=== PATIENT | female | born 1945 | race Caucasian/White ===

== ENCOUNTER 2019-10-21 14:56 | Outpatient (CLI) | payer MEDICARE, SELFPAY ==
--- NOTE | ~2019-10-21 | MM_ITS ---
EXAMINATION: MM screening [facility] BI w yury HISTORY: Screening mammogram TECHNIQUE: Craniocaudal and mediolateral oblique 3-D tomosynthesis images were obtained and synthetic 2-D images were generated. CAD analysis was submitted and interpreted. COMPARISON: No prior mammogram is available for comparison at this institution. BREAST PARENCHYMAL COMPOSITION: The breasts are almost entirely fatty. FINDINGS: Scattered benign-appearing calcifications are present. There is no evidence of suspicious m ass, calcification, or architectural distortion to suggest malignancy in either breast. IMPRESSION: 1. No mammographic evidence of malignancy. 2. Recommend routine screening mammography in one year. BI-RADS Category 2: Benign finding(s). Reviewed, dictated and finalized at location A. ING TECHNICIAN
== END 2019-10-21 14:57 | disposition home or self-care (01) ==
LOC: ANHIMG 14:58
PROVIDERS: PCP Internal Medicine; Visit Provider Internal Medicine
DX: Z12.31 Encounter for screening mammogram for malignant neoplasm of breast (principal)
CPT/HCPCS: 77063; 77067

== ENCOUNTER 2019-10-21 14:58 | Outpatient (CLI) | payer MEDICARE, SELFPAY ==
--- NOTE | ~2019-10-21 | DEXA_ITS ---
Bone Density Report Name: DAMON PATEL Age: 74 Sex: Female Ethnicity: Samira Date of : 1945 Indication: postmenopausal; height loss; cancer; hysterectomy; Referring Provider: CHELE MCCLURE Study: Bone densitometry was performed. Exam Date: October 21, 2019 Accession number: [id number] Bone Density: Region BMD T-score Z-score Classification AP Spine (L1-L4) 1.030 -0.2 2.1 Normal Femoral Neck (Left) 0.899 0.5 2.4 Normal Total Hip (Left) 1.227 2.3 4.0 Normal Total Hip Bilateral Avg 1.209 2.2 3.9 Normal Femoral Neck (Right) 1.033 1.7 3.6 Normal Total Hip (Right) 1.190 2.0 3.7 Normal World Health Organization criteria for BMD impression classify patients as: Normal (T-score at or above -1.0), Osteopenia (T-score between -1.0 and -2.5), or Osteoporosis (T-score at or below -2.5). 10-year Fracture Risk: FRAX not reported because: All T-scores for Spine Total, Hip Total, Femoral Neck at or above -1.0 Clinical Information Provided by Patient: Has used the following medications: Vitamin D Has the following medical conditions: Cancer, Hysterectomy Patient maximum height was 64 Menopause Age: 49 No regular weight bearing exercise Drinks caffeinated beverages Onset of menses at age 12 Number of children 0 Impression: The patient has normal bone mass. Discussion: LOW RISK OF FRACTURE; BONE DENSITY IS WELL ABOVE THE MINIMUM DESIRABLE LEVEL AND ABOVE AVERAGE FOR AGE AND SEX AT ALL SKELETAL SITES TESTED. This person's bone density is above expected limits for age and sex. This is rarely clinically significant, but should be pursued if there are significant musculoskeletal complaints. The patient should follow a healthful lifestyle (good nutrition with adequate calcium and vitamin D, and appropriate weight-bearing exercise). Follow-Up: Consider repeating this study in 5 years or sooner if there is some new clinical indication. Reported by: [facility] on 10/21/2019 3:44:00 PM. Reviewed, dictated and finalized at location AGermain AQUINO
== END 2019-10-21 14:59 | disposition home or self-care (01) ==
LOC: ANHIMG 14:59
PROVIDERS: PCP Internal Medicine; Visit Provider Internal Medicine
DX: Z13.820 Encounter for screening for osteoporosis (principal); Z78.0 Asymptomatic menopausal state
CPT/HCPCS: 77080

== ENCOUNTER 2024-08-31 13:30 | Outpatient (CLI) | payer MEDICARE, SELFPAY ==
--- NOTE | ~2024-08-31 | XR_ITS ---
EXAMINATION: XR chest 2V 08/31/2024 14:01 INDICATION: Atypical pneumonia and shortness of breath PROCEDURE: 2 view chest COMPARISON: No prior studies for comparison. FINDINGS: The lungs are clear. The cardiomediastinal silhouette is within normal limits. There are no pleural effusions. There is no pneumothorax suspected. IMPRESSION: 1: NO ACUTE CARDIOPULMONARY DISEASE. Reviewed, dictated and finalized at location B. LAUNCH WEAPONS TECHNICIAN
[2024-08-31 14:19] LABS: Basophils Percent Auto 0.4 % (0.2-1.2); Eosinophils Absolute Auto 0.1 K/mm3 (0-0.3); Eosinophils Percent Auto 1.6 % (0-4.4); Hematocrit 45.5 % (37.0-47.0); Hemoglobin 14.9 g/dL (12.0-15.0); Immature Granulocyte Absolute 0.01 K/mm3 (0.00-0.031); Immature Granulocyte Percent A 0.2 % (0-0.5); Lymphocytes Absolute Auto 2.47 K/mm3 (0.9-3.2); Lymphocytes Percent Auto 50.1 % (18.3-44.2); Mean Corpuscular HGB Conc 32.7 g/dl (32-36); Mean Corpuscular Hemoglobin 30.2 pg (26-34); Mean Corpuscular Volume 92.1 fl (80-100); Mean Platelet Volume 10.9 fl (7.4-10.4); Monocytes Absolute Auto 0.4 K/mm3 (0.1-0.6); Monocytes Percent Auto 8.7 % (2.6-8.5); Neutrophils Absolute Auto 1.9 K/mm3 (1.3-6.7); Platelet Count Result 289 k/mm3 (150-375); Red Blood Count 4.94 M/mm3 (4.2-5.4); Red Cell Distribution Width 13.2 % (11.5-14.5); White Blood Count 4.9 K/mm3 (4.5-10.0)
[2024-08-31 14:44] LABS: Alanine Aminotransferase 87 U/L (6-35); Albumin Level 4.2 g/dL (3.5-5.1); Alkaline Phosphatase 68 U/L (38-126); Anion Gap 4 mmol/L (4-12); Aspartate Amino Transferase 123 U/L (14-36); Bilirubin,Total 1.1 mg/dL (0.2-1.3); Blood Urea Nitrogen 15 mg/dL (7-17); Calcium 9.5 mg/dL (8.4-10.2); Carbon Dioxide 28 mmol/L (22-30); Chloride 108 mmol/L (98-107); Estimated Glomerular Filt Rate 43; Glucose 105 mg/dL (65-110); Potassium 4.2 mmol/L (3.4-5.0); Sodium 140 mmol/L (137-145)
== END 2024-08-31 13:31 | disposition home or self-care (01) ==
PROVIDERS: PCP Internal Medicine; Visit Provider Internal Medicine
DX: J18.9 Pneumonia, unspecified organism (principal)
CPT/HCPCS: 36415; 71046; 80053; 85025

== ENCOUNTER 2024-11-11 09:41 | Outpatient (CLI) | payer MEDICARE, SELFPAY | END 2024-11-11 09:42 | disposition home or self-care (01) | PROVIDERS: PCP Family Medicine; Visit Provider Otolaryngology | DX: J32.0 Chronic maxillary sinusitis (principal) | CPT/HCPCS: 70486 ==

== ENCOUNTER 2024-12-29 10:01 | Outpatient (CLI) | payer MEDICARE, SELFPAY ==
--- NOTE | ~2024-12-29 | MM_ITS ---
EXAMINATION: MM screening [facility] BI w yury HISTORY: Screening TECHNIQUE: Craniocaudal and mediolateral oblique 3-D tomosynthesis images were obtained and synthetic 2-D images were generated. CAD analysis was submitted and interpreted. COMPARISON: 10/21/2019 BREAST PARENCHYMAL COMPOSITION: Not dense: There are scattered areas of fibroglandular density. FINDINGS: The left breast is stable without evidence for malignancy. There is a new developing cluste r of indeterminate calcifications in the lower inner quadrant of the right breast, posterior third. T here are no suspicious masses or architectural distortion. IMPRESSION: 1. Developing cluster of indeterminate right breast calcifications, lower inner quadrant, posterior t hird. 2. Magnification views are recommended. BI-RADS Category 0: Incomplete: Needs additional imaging evaluation. Reviewed, dictated and finalized at location B. IMPRESSION: 1. Developing cluster of indeterminate right breast calcifications, lower inner quadrant, posterior third. 2. Magnification views are recommended. BI-RADS Category 0: Incomplete: Needs additional imaging evaluation.
--- OUTSIDE RECORDS SUMMARY | 2024-12-29 10:44 | XMS_ITS | Referral Summary ---
Author Organization [facility] Address [address] [place] [id number] Care Team Providers Care Hot Punch Press Operator Name Role Phone Joan Hogan MD Primary Care Provider +1- [phone] Caroline Granados MD Unavailable +1 -[phone] Allergies Active Allergy Reactions Criticality Noted Date Comments Cefprozil Swelling Medium 10/11/2018 Other reaction(s): anaphylaxis. swelling. tolerates penicillin. Pregabalin Hallucinations Medium 03/10/2022 Medications lisinopril (PRINIVIL,ZESTRI L) 20 mg tablet Take 1 tablet (20 mg total) by mouth daily 2 08/23/[address] (CYMBALTA) 60 mg capsule 01/06/2022 Active Active Problems Problem Noted Date Diagnosed Date Morbid obesity with BMI of 40.0-44.9, adult 12/2022 Assessment & Plan (12/16/2022 9:08 AM CDT): Counseled on diet and exercise Essential hypertension 07/18/2019 Assessment & Plan (08/27/2020 10:37 AM MOSAICIST): Chronic, well controlled continue current medication Assessment & Plan (07/18/2019 3:58 PM MOSAICIST): Chronic, well controlled continue current medication Impacted cerumen of right ear 02/28/2019 Assessment & Plan (02/28/2019 7:55 AM CDT): Patient's ears were cleaned today. Patient had an excessive amount of cerumen within her right ear canal that was removed. The remainder of the otologic exam was unremarkable. Recommend patient follow back up in six months for repeat ear exam. Hyperthyroidism 11/28/2014 Assessment & Plan (12/16/2022 9:09 AM CDT): Hyperthyroidism most likely due to Graves Off methimazole at least since 1 year Clinically euthyroid Recheck thyroid function test today and include thyroid antibodies and further plans based on it Assessment & Plan (09/23/2021 10:16 AM MOSAICIST): reviewed recent TFT , TFT WNL, TSI - elevated Continue methimazole therapy Recheck labs in 3 months F/w in 6 months Assessment & Plan (08/27/2020 10:37 AM MOSAICIST): reviewed recent TFT , TFT WNL, TSI - elevated Continue methimazole therapy Recheck labs in 3 months F/w in 6 months Assessment & Plan (12/19/2019 9:45 AM CDT): Continue to take Methimazole 2.5 mg oral daily Recheck labs in 3 months Assessment & Plan (07/18/2019 3:57 PM MOSAICIST): Probably secondary to Graves disease Reviewed recent TFT - iatrogenic hypothyroidism Advise to decrease Methimazole to 2.5 mg oral daily Recheck labs in 3 months and every 3 months Follow up in 6 months Important Information About your antithyroid Medication Instruction to patients taking Tapazole (methimazole) for the treatment of hyperthyroidism Name: Cornelia Olivas Date of : 1945 Medication : Methimazole Dose :2.5 Frequency: once daily Take your medication every day as directed by your physician unless you notice the problems listed below: If you notice a skin rash, then call your doctor as soon as possible. If you notice a sore throat, sores in the mouth, or develop a fever: Call your doctor as soon as possible You need to go to your doctor s office or hospital to have a blood test (Complete Blood Count and Differential Count) If the blood test is normal, then your doctor will instruct you to continue taking the anti-thyroid medication. DO NOT stop the anti-thyroid medication unless your doctor tells you to do so. As long as you are taking this anti-thyroid medication, you must see your physician regularly to keep the medication properly adjusted based on your thyroid blood tests. Then please contact your doctor immediately Assessment & Plan (04/25/2019 12:24 PM CDT): Probably secondary to Graves disease Reviewed recent TFT - iatrogenic hypothyroidism Advise to decrease Methimazole to 5 mg oral daily Recheck labs in 3 months Follow up in 3 months Important Information About your antithyroid Medication Instruction to patients taking Tapazole (methimazole) for the treatment of hyperthyroidism Name: Cornelia Olivas Date of : 1945 Medication : Methimazole Dose : 5 Frequency: once daily Take your medication every day as directed by your physician unless you notice the problems listed below: If you notice a skin rash, then call your doctor as soon as possible. If you notice a sore throat, sores in the mouth, or develop a fever: Call your doctor as soon as possible You need to go to your doctor s office or hospital to have a blood test (Complete Blood Count and Differential Count) If the blood test is normal, then your doctor will instruct you to continue taking the anti-thyroid medication. DO NOT stop the anti-thyroid medication unless your doctor tells you to do so. As long as you are taking this anti-thyroid medication, you must see your physician regularly to keep the medication properly adjusted based on your thyroid blood tests. Then please contact your doctor immediately Assessment & Plan (01/17/2019 12:48 PM CDT): Probably secondary to Graves disease Reviewed recent TFT - WNL Advise to continue to take Methimazole 10 mg oral daily Recheck labs in 3 months Follow up in 3 months Important Information About your antithyroid Medication Instruction to patients taking Tapazole (methimazole) for the treatment of hyperthyroidism Name: Cornelia Olivas Date of : 1945 Medication : Methimazole Dose : 10 Frequency: once daily Take your medication every day as directed by your physician unless you notice the problems listed below: If you notice a skin rash, then call your doctor as soon as possible. If you notice a sore throat, sores in the mouth, or develop a fever: Call your doctor as soon as possible You need to go to your doctor s office or hospital to have a blood test (Complete Blood Count and Differential Count) If the blood test is normal, then your doctor will instruct you to continue taking the anti-thyroid medication. DO NOT stop the anti-thyroid medication unless your doctor tells you to do so. As long as you are taking this anti-thyroid medication, you must see your physician regularly to keep the medication properly adjusted based on your thyroid blood tests. Then please contact your doctor immediately Assessment & Plan (10/31/2018 10:55 PM MOSAICIST): Probably secondary to Graves disease Reviewed recent TFT Advise to do Methimazole 10 mg oral daily Recheck labs in 3 months Follow up in 3 months Important Information About your antithyroid Medication Instruction to patients taking Tapazole (methimazole) for the treatment of hyperthyroidism Name: Cornelia Olivas Date of : 1945 Medication : Methimazole Dose : 10 Frequency: once daily Take your medication every day as directed by your physician unless you notice the problems listed below: If you notice a skin rash, then call your doctor as soon as possible. If you notice a sore throat, sores in the mouth, or develop a fever: Call your doctor as soon as possible You need to go to your doctor s office or hospital to have a blood test (Complete Blood Count and Differential Count) If the blood test is normal, then your doctor will instruct you to continue taking the anti-thyroid medication. DO NOT stop the anti-thyroid medication unless your doctor tells you to do so. As long as you are taking this anti-thyroid medication, you must see your physician regularly to keep the medication properly adjusted based on your thyroid blood tests. Then please contact your doctor immediately Obesity 11/28/2014 Assessment & Plan (09/23/2021 10:16 AM MOSAICIST): Chronic, unchanged Discussed about healthy lifestyle habits advise to work on healthy diet, avoid processed foods , increase vegetables and protein and cut back on carb portions and also avoid fruit juices and regular soda and desserts Increase physical activity , recommend at least 150 min of aerobic activity per week and include resistance training 2 x weekly Assessment & Plan (08/27/2020 10:37 AM MOSAICIST): Chronic, worsening Discussed about healthy lifestyle habits advise to work on healthy diet, avoid processed foods , increase vegetables and protein and cut back on carb portions and also avoid fruit juices and regular soda and desserts Increase physical activity , recommend at least 150 min of aerobic activity per week and include resistance training 2 x weekly Assessment & Plan (07/18/2019 3:57 PM MOSAICIST): Chronic, unchanged Discussed about healthy lifestyle habits advise to work on healthy diet, avoid processed foods , increase vegetables and protein and cut back on carb portions and also avoid fruit juices and regular soda and desserts Increase physical activity , recommend at least 150 min of aerobic activity per week and include resistance training 2 x weekly Assessment & Plan (04/25/2019 12:24 PM CDT): Obesity is unchanged. Discussed the patient's BMI. The BMI is above average; BMI management plan is completed. General weight loss/lifestyle modification strategies discussed (elicit support from others; identify saboteurs; non-food rewards, etc). Behavioral treatment: stress management. Diet interventions: moderate (500 kCal/d) deficit diet. Informal exercise measures discussed, e.g. taking stairs instead of elevator. Regular aerobic exercise program discussed. Assessment & Plan (01/17/2019 12:48 PM CDT): Obesity is unchanged. Discussed the patient's BMI. The BMI is above average; BMI management plan is completed. General weight loss/lifestyle modification strategies discussed (elicit support from others; identify saboteurs; non-food rewards, etc). Behavioral treatment: stress management. Diet interventions: moderate (500 kCal/d) deficit diet. Informal exercise measures discussed, e.g. taking stairs instead of elevator. Regular aerobic exercise program discussed. Assessment & Plan (10/31/2018 10:56 PM MOSAICIST): Obesity is worsening. Discussed the patient's BMI. The BMI is above average; BMI management plan is completed. General weight loss/lifestyle modification strategies discussed (elicit support from others; identify saboteurs; non-food rewards, etc). Behavioral treatment: stress management. Diet interventions: moderate (500 kCal/d) deficit diet. Informal exercise measures discussed, e.g. taking stairs instead of elevator. Regular aerobic exercise program discussed. Prediabetes 11/28/2014 Assessment & Plan (12/16/2022 9:08 AM CDT): Check hemoglobin A1c Counseled on diet and exercise Vitamin D deficiency 10/11/2014 Overview (03/10/2022): Identified By: Mazin Rivera Assessment & Plan (12/16/2022 9:08 AM CDT): Check vitamin-D levels and further plans based on it Advised to take at least [id number] vitamin-D3 1000 units oral daily Assessment & Plan (09/23/2021 10:17 AM MOSAICIST): Pt non complaint with replacement therapy Recheck labs today and further plans based on it Assessment & Plan (08/27/2020 10:37 AM MOSAICIST): Improving C/w replacement dose Assessment & Plan (12/19/2019 9:44 AM CDT): Continue to take Vitamin D 50,0000 units oral weekly Recheck vitamin D levels in 3 months Toxic diffuse goiter 10/11/2014 Overview (03/10/2022): seeing Dr. Grimm Identified By: Mazin Rivera Endometrial cancer 03/22/2014 Postmenopausal bleeding 03/07/2014 Depressive disorder 01/02/2014 Overview (03/10/2022): Identified By: Karla Sifuentes Elevated blood pressure reading 02/02/2013 Overview (03/10/2022): Identified By: Mazin Rivera Meralgia paresthetica 02/02/2013 Overview (03/10/2022): Identified By: Mazin Rivera Trigger finger of both hands 02/02/2013 Overview (03/10/2022): bilateral ring trigger fingers given CSI by Dr. Day on 03/10/13. 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 Dermatochalasis 01/22/2012 Floaters 01/22/2012 Pinguecula 01/22/2012 Senile nuclear cataract 01/22/2012 Hyperlipidemia 05/20/2011 Ganglion 10/28/2007 Osteoarthrosis, hand 10/28/2007 Trigger finger, acquired 10/28/2007 Immunizations Immunization Administration Dates Next Due Pneumococcal Polysaccharide PPV23 07/01/2011 Pneumococcal, Unspecified 02/20/2016 Social History Tobacco Use Types Packs/Day Years Used Date Smoking Tobacco: Never Smokeless Tobacco: Never Tobacco Cessation:Counseling Given: Yes Alcohol Use Standard Drinks/Week Comments No 0 (1 standard drink = 0.6 oz pur e alcohol) PHQ-2 Answer Date Recorded PHQ-2 Total Score (If total score is 3 or more points, staff should administer the PHQ-9) 0 09/23/2021 Personal Safety Answer Date Recorded Getting School Help Needed Not on file 01/12 Comments No Sex and Gender Information Value Date Recorded Sex Assigned at Not on file Legal Sex Female 9:41 AM MOSAICIST Gender Identity Not on file Sexual Orientation Not on file Last Filed Vital Signs Vital Sign Reading Time Taken Comments Blood Pressure 120/80 12/16/2022 8:28 AM CDT Pulse 72 12/16/2022 8:28 AM CDT Temperature - - Respiratory Rate 12 12/16/2022 8:28 AM CDT Oxygen Saturation 94% 06/14/2019 9:12 AM CDT Inhaled Oxygen Concentration - - Weight 110.6 kg (243 lb 12.8 oz) 12/16/2022 8:28 AM CDT Height 157.5 cm (5' 2 ) 12/16/2022 8:2 8 AM CDT Body Mass Index 44.59 12/16/2022 8:28 AM CDT Plan of Treatment Not on file Insurance [employer] MEDICARE ADVANTAGE Member Subscriber Plan / Payer (Ef fective 2022-) Name:Cornelia Olivas Relation to Subscriber:Self Name:Cornelia Olivas Payer ID:[id number] (NAIC) Type:[facility] MEDICARE Address: [place] [id number] MEDICARE ADVANTAGE [place] [id number] UHC MEDICARE ADVANTAGE Care Teams Hot Punch Press Operator Relationship Specialty Start Date End Date Joan Hogan MD [employer] [facility] [place] [address] PCP - General Internal Medicine 09/17/18 [place] [id number] [address] Consulting Physician Endocrinology 10/11/18
--- OUTSIDE RECORDS SUMMARY | 2024-12-29 10:44 | XMS_ITS | Clinical Summary ---
Author Organization [facility] Address [address] [place] [id number] Care Team Providers Care Wage And Salary Administrator Name Role Phone Joan Hogan MD Primary Care Provider +1- [phone] Caroline Granados MD Unavailable +1 -[phone] Allergies Active Allergy Reactions Criticality Noted Date [...] 07/18/2019 Assessment & Plan (08/27/2020 10:37 AM AUTO HIKER): Chronic, well controlled continue current medication Assessment & Plan (07/18/2019 3:58 PM AUTO HIKER): Chronic, well controlled continue current medication Impacted [...] it Assessment & Plan (09/23/2021 10:16 AM AUTO HIKER): reviewed recent TFT , TFT WNL, TSI - elevated Continue methimazole therapy Recheck labs in 3 months F/w in 6 months Assessment & Plan (08/27/2020 10:37 AM AUTO HIKER): reviewed recent TFT , TFT WNL, TSI - elevated Continue methimazole therapy Recheck labs in 3 months F/w in 6 months Assessment & Plan (12/19/2019 9:45 AM CDT): Continue to take Methimazole 2.5 mg oral daily Recheck labs in 3 months Assessment & Plan (07/18/2019 3:57 PM AUTO HIKER): Probably secondary to Graves disease Reviewed recent [...] immediately Assessment & Plan (10/31/2018 10:55 PM AUTO HIKER): Probably secondary to Graves disease Reviewed recent [...] 11/28/2014 Assessment & Plan (09/23/2021 10:16 AM AUTO HIKER): Chronic, unchanged Discussed about healthy lifestyle habits [...] weekly Assessment & Plan (08/27/2020 10:37 AM AUTO HIKER): Chronic, worsening Discussed about healthy lifestyle habits [...] weekly Assessment & Plan (07/18/2019 3:57 PM AUTO HIKER): Chronic, unchanged Discussed about healthy lifestyle habits [...] discussed. Assessment & Plan (10/31/2018 10:56 PM AUTO HIKER): Obesity is worsening. Discussed the patient's BMI. [...] on it Advised to take at least [id number] vitamin-D3 1000 units oral daily Assessment & Plan (09/23/2021 10:17 AM AUTO HIKER): Pt non complaint with replacement therapy Recheck labs today and further plans based on it Assessment & Plan (08/27/2020 10:37 AM AUTO HIKER): Improving C/w replacement dose Assessment & Plan [...] Pneumococcal Polysaccharide PPV23 07/01/2011 Pneumococcal, Unspecified 02/20/2016 Surgical History Surgery Date Site/Laterality Comments CATARACT EXTRACTION, BILATERAL UTERINE FIBROID SURGERY OTHER SURGICAL HISTORY heart abalation HYSTERECTOMY ABLATION Medical History Medical History Date Comments Hyperthyroidism Cataracts, bilateral Atrial flutter (HCC) Fibromyalgia Family History Medical History Relation Name Comments Brain cancer Father Lung cancer Father Heart failure Mother Hypertension Mother Migraines Mother Relation Name Status Comments Father Mother Social History Tobacco Use Types Packs/Day Years [...] on file Legal Sex Female 9:41 AM AUTO HIKER Gender Identity Not on file Sexual Orientation Not on file Obstetrics History Last Filed Vital Signs Vital Sign Reading Time Taken Comments Blood Pressure 120/80 12/16/2022 8:28 AM CDT Pulse 72 12/16/2022 8:28 AM CDT Temperature - - Respiratory Rate 12 12/16/2022 8:28 AM CDT Oxygen Saturation 94% 06/14/2019 9:12 AM CDT Inhaled Oxygen Concentration - - Weight 110.6 kg (243 lb 12.8 oz) 12/16/2022 8:28 AM CDT Height 157.5 cm (5' 2 ) 12/16/2022 8:28 AM CDT Body Mass Index 44.59 12/16/2022 8:28 AM CDT Plan of Treatment Health Maintenance Due Date Last Done Comments Fall Risk Assessment 1945 Hepatitis C Screening 1945 DTaP/Tdap/Td Vaccine (1 - Tdap) 1957 Hepatitis B Screening 1964 Zoster Vaccine (1 of 2) 1996 Well Visit 65+ 2011 Osteoporosis Screening-Bone Density Scan 02/10/2015 02/10/2013 Pneumococcal vaccine 65+ (2 of 2 - PCV) 02/19/2017 02/20/2016, 07/01/2011 Depression Screening 09/23/2022 09/23/2021, 08/27/2020, 07/18/2019, Additional history exists Covid-19 Vaccine (3 - 2023-2 5 season) 2024 11/27/2020, 11/06/2020 Influenza Vaccine (Season Ended) 2025 Breast Cancer Screening-Mammogram Discontinued [id number] Insurance [facility] MEDICARE ADVANTAGE [address] MEDICARE ADVANTAGE [address] MEDICARE ADVANTAGE 2019 [place] [id number] Care Teams Wage And Salary Administrator Relationship Specialty Start Date End Date Joan Hogan MD [address] [employer] [facility] [place] [address] PCP - General Internal Medicine 09/17/18 [place] [id number] [address] [facility] [address] [place] [address] Consulting Physician Endocrinology 10/11/18
== END 2024-12-29 10:02 | disposition home or self-care (01) ==
PROVIDERS: PCP Family Medicine; Visit Provider Family Medicine
DX: Z12.31 Encounter for screening mammogram for malignant neoplasm of breast (principal); R92.8 Other abnormal and inconclusive findings on diagnostic imaging of breast
CPT/HCPCS: 77063; 77067

== ENCOUNTER 2025-01-05 10:58 | Outpatient (CLI) | payer MEDICARE, SELFPAY ==
--- NOTE | ~2025-01-05 | MM_ITS ---
EXAMINATION: MM diagnostic mathtew RT w yury HISTORY: Follow-up right breast calcifications TECHNIQUE: Additional 3-D tomosynthesis images of the right breast were performed and synthetic 2-D i mages were generated. CAD analysis was submitted and interpreted. COMPARISON: Comparison to multiple prior studies sequentially, with oldest reviewed study dated 03/2020. BREAST PARENCHYMAL COMPOSITION: Not dense: There are scattered areas of fibroglandular density. FINDINGS: There is a developing cluster of pleomorphic calcifications in the lower inner quadrant of the right breast, posterior third. There are no masses or architectural distortion. There are scatter ed benign secretory calcifications which are stable. IMPRESSION: 1. Developing pleomorphic right breast calcifications, lower inner quadrant, posterior third. 2. Stereotactic right breast biopsy recommended. BI-RADS category 4, suspicious findings. Reviewed, dictated and finalized at location A. IMPRESSION: 1. Developing pleomorphic right breast calcifications, lower inner quadrant, po sterior third. 2. Stereotactic right breast biopsy recommended. BI-RADS category 4, suspicious findings.
--- OUTSIDE RECORDS SUMMARY | 2025-01-05 12:27 | XMS_ITS | Clinical Summary ---
Author Organization [facility] Address [address] [place] [id number] Care Team Providers Care Refrigerator Room Clerk Name Role Phone Joan Hogan MD Primary Care Provider [phone]- [phone] Caroline Granados MD Unavailable [phone] [phone] Allergies Active Allergy Reactions Criticality Noted Date [...] 07/18/2019 Assessment & Plan (08/27/2020 10:37 AM CHRONIC CARE NURSE): Chronic, well controlled continue current medication Assessment & Plan (07/18/2019 3:58 PM CHRONIC CARE NURSE): Chronic, well controlled continue current medication Impacted [...] it Assessment & Plan (09/23/2021 10:16 AM CHRONIC CARE NURSE): reviewed recent TFT , TFT WNL, TSI - elevated Continue methimazole therapy Recheck labs in 3 months F/w in 6 months Assessment & Plan (08/27/2020 10:37 AM CHRONIC CARE NURSE): reviewed recent TFT , TFT WNL, TSI - elevated Continue methimazole therapy Recheck labs in 3 months F/w in 6 months Assessment & Plan (12/19/2019 9:45 AM CDT): Continue to take Methimazole 2.5 mg oral daily Recheck labs in 3 months Assessment & Plan (07/18/2019 3:57 PM CHRONIC CARE NURSE): Probably secondary to Graves disease Reviewed recent [...] immediately Assessment & Plan (10/31/2018 10:55 PM CHRONIC CARE NURSE): Probably secondary to Graves disease Reviewed recent [...] 11/28/2014 Assessment & Plan (09/23/2021 10:16 AM CHRONIC CARE NURSE): Chronic, unchanged Discussed about healthy lifestyle habits [...] weekly Assessment & Plan (08/27/2020 10:37 AM CHRONIC CARE NURSE): Chronic, worsening Discussed about healthy lifestyle habits [...] weekly Assessment & Plan (07/18/2019 3:57 PM CHRONIC CARE NURSE): Chronic, unchanged Discussed about healthy lifestyle habits [...] discussed. Assessment & Plan (10/31/2018 10:56 PM CHRONIC CARE NURSE): Obesity is worsening. Discussed the patient's BMI. [...] on it Advised to take at least [id number] vitamin-D3 1000 units oral daily Assessment & Plan (09/23/2021 10:17 AM CHRONIC CARE NURSE): Pt non complaint with replacement therapy Recheck labs today and further plans based on it Assessment & Plan (08/27/2020 10:37 AM CHRONIC CARE NURSE): Improving C/w replacement dose Assessment & Plan [...] ring trigger fingers given CSI by Dr. aDy on 03/10/13. Identified By: Mazin Rivera Anterior [...] on file Legal Sex Female 9:41 AM CHRONIC CARE NURSE Gender Identity Not on file Sexual Orientation [...] 2025 Breast Cancer Screening-Mammogram Discontinued 013 Insurance [facility] MEDICARE ADVANTAGE [facility] MEDICARE Address: [address] [address] [place] [address] MEDICARE ADVANTAGE [facility] MEDICARE Address: [address] [address] [place] [address] MEDICARE ADVANTAGE 2019 [place] [id number] Care Teams Refrigerator Room Clerk Relationship Specialty Start Date End Date Joan Hogan MD [address] [facility] [place] [address] PCP - General Internal Medicine 09/17/18 [place] [id number] [address] [facility] [address] [place] [address] Consulting Physician Endocrinology 10/11/18
--- OUTSIDE RECORDS SUMMARY | 2025-01-05 12:27 | XMS_ITS | Referral Summary ---
Author Organization [facility] Address [address] [place] [id number] Care Team Providers Care Gravity Meter Operator Name Role Phone Joan Hogan MD Primary Care Provider [phone]- [phone] Caroline Granados MD Unavailable [phone] [phone] Allergies Active Allergy Reactions Criticality Noted Date [...] 07/18/2019 Assessment & Plan (08/27/2020 10:37 AM ENGINEER BYPRODUCT): Chronic, well controlled continue current medication Assessment & Plan (07/18/2019 3:58 PM ENGINEER BYPRODUCT): Chronic, well controlled continue current medication Impacted [...] it Assessment & Plan (09/23/2021 10:16 AM ENGINEER BYPRODUCT): reviewed recent TFT , TFT WNL, TSI - elevated Continue methimazole therapy Recheck labs in 3 months F/w in 6 months Assessment & Plan (08/27/2020 10:37 AM ENGINEER BYPRODUCT): reviewed recent TFT , TFT WNL, TSI - elevated Continue methimazole therapy Recheck labs in 3 months F/w in 6 months Assessment & Plan (12/19/2019 9:45 AM CDT): Continue to take Methimazole 2.5 mg oral daily Recheck labs in 3 months Assessment & Plan (07/18/2019 3:57 PM ENGINEER BYPRODUCT): Probably secondary to Graves disease Reviewed recent [...] immediately Assessment & Plan (10/31/2018 10:55 PM ENGINEER BYPRODUCT): Probably secondary to Graves disease Reviewed recent [...] 11/28/2014 Assessment & Plan (09/23/2021 10:16 AM ENGINEER BYPRODUCT): Chronic, unchanged Discussed about healthy lifestyle habits [...] weekly Assessment & Plan (08/27/2020 10:37 AM ENGINEER BYPRODUCT): Chronic, worsening Discussed about healthy lifestyle habits [...] weekly Assessment & Plan (07/18/2019 3:57 PM ENGINEER BYPRODUCT): Chronic, unchanged Discussed about healthy lifestyle habits [...] discussed. Assessment & Plan (10/31/2018 10:56 PM ENGINEER BYPRODUCT): Obesity is worsening. Discussed the patient's BMI. [...] on it Advised to take at least rlkz-mfm-okajgno vitamin-D3 1000 units oral daily Assessment & Plan (09/23/2021 10:17 AM ENGINEER BYPRODUCT): Pt non complaint with replacement therapy Recheck labs today and further plans based on it Assessment & Plan (08/27/2020 10:37 AM ENGINEER BYPRODUCT): Improving C/w replacement dose Assessment & Plan [...] on file Legal Sex Female 9:41 AM ENGINEER BYPRODUCT Gender Identity Not on file Sexual Orientation [...] to Subscriber:Self Name:Cornelia Olivas Payer ID:[id number] (NAIC) Type:[facility] MEDIC[facility] Address: [place] [phone] MEDICARE ADVANTAGE [place] [phone] UHC MEDICARE ADVANTAGE Care Teams Gravity Meter Operator Relationship Specialty Start Date End Date Joan Hogan MD COUNTRY [facility] [place] [address] PCP - General Internal Medicine 09/17/18 [place] [id number] [address] Consulting Physician Endocrinology 10/11/18
== END 2025-01-05 10:59 | disposition home or self-care (01) ==
PROVIDERS: PCP Family Medicine; Visit Provider Family Medicine
DX: R92.8 Other abnormal and inconclusive findings on diagnostic imaging of breast (principal)
CPT/HCPCS: 77061; 77065; G0279

== ENCOUNTER 2025-01-30 08:35 | Outpatient (CLI) | payer MEDICARE, SELFPAY ==
--- OUTSIDE RECORDS SUMMARY | 2025-01-30 08:40 | XMS_ITS | Continuity of Care Document ---
Author Organization [facility] Address [address] [place] [address] Phone Care Team Providers Care Sales Professional Name Role Phone BarriosKelechi shah MD, MD Unavailable Unavailable Allergies, Adverse Reactions, Alerts Substance Reaction Status Criticality Cephalosporins Active No Informatio n Sulfa (Sulfonamide Antibiotics) Active No Information Medications Medication Instructions Dosage Effective Dates (start - stop) Status Comments methimazole 5 mg tablet take 1/2 tablet by oral route every day (pt reports not taking x several months) - Active tramadol 50 mg tablet take 1 tablet by o ral route every 6 hours as needed 50 MG - Active gabapentin 100 mg capsule take 2 Capsule by oral route 3 times every day 200 MG - Active lisinopril 20 mg tablet take 1 tablet by oral route every day 20 MG - Active warfarin 2 mg tablet Take as directed pe r current INR: Currently taking 1 and 1/2 tabs x 5 days and 2 tabs x 2 days weekly. - Active Vitamin D3 5,000 unit tablet take 1 tablet by ophthalmic route every day 1 tablet - Active Procedures Procedure Date INR Review & Mgmt, Per Test INR Review & Mgmt, Per Test INR Review & Mgmt, Per Test INR Review & Mgmt, Per Test INR Review & Mgmt, Per Test INR Review & Mgmt, Per Test INR Review & Mgmt, Per Test Office Visit Level 3 EKG With Interp And Report INR Review & Mgmt, Per Test Office Visit Level 4 EKG With Interp And Report EKG With Interp And Report Comp EPS & SVT Ablation EP Complete Evalualtion, Left Atrial Rec ording EP Ventricle And Or Atrial Mapping Conscious/Moderate Sedation, Initial 15 Min. Office Visit Level 4 EKG With Interp And Report Left Heart Cath With Cors W/WO LV Conscious/Moderate Sedation, Initial 15 Min. New Pt Office Visit Level 3 Rubidium Rb 82 Up To 60 Mc Nuclear scan, PET, perfusion, mult studi es IO-Stress Supervision, Office 7 Stress Tracing Only Regadenoscan Per 0.1 MG IO-Stress Intepretation, Office 017 Office Visit Level 4 EKG With Interp And Report Discharge From Observation Echo, Complete, Interp Observation Admit Level 2 Advance Directives Directive Yes / No Effective Date File Name No Information Encounters Encounter Description Practice Location Reason(s) For Visit Diagnoses Date Provider Providers Copied on Encounter [facility], [address], [place], [address], tel:[phone] [place] [facility] Paroxysmal atrial fibrillation 9 Sophie Lorenz. [facility], [address], [place], [place], [id number], [place]. tel:[phone] Referring Provider: Kelechi Felix, [facility] [address], [place], [address]. tel:[phone] [facility], [address], [place], [address], [place] tel:[phone] [place] [facility] Paroxysmal atrial fibrillation Aug-2 8 Sophie Lorenz. [facility], [address], [place], [place], [id number], [place]. tel:[phone] Referring Provider: Kelechi Felix, [facility] [address], [place], [address]. tel:[phone] [facility], [address], [place], [address], [place] tel:[phone] [place] [facility] Paroxysmal atrial fibrillation Jul-3 0 8 Sophie Lorenz. [facility], [address], [place], [place], [id number], [place]. tel:[phone] Referring Provider: Kelechi Felix, [facility] [address], [place], [address]. tel:[phone] [facility], [address], [place], [address], [place] tel:[phone] [place] [facility] Paroxysmal atrial fibrillation 0 8 Sophie Lorenz. [facility], [address], [place], [place], [address], [place]. tel:[phone] Referring Provider: Kelechi Felix, [facility] [address], [place], [address]. tel:[phone] [facility], [address], [place], [address], [place] tel:[phone] [place] [facility] Paroxysmal atrial fibrillation Oct- 6201 8 Sophie Lorenz. [facility], [address], [place], [place], [address], [place]. tel:[phone] Referring Provider: Kelechi Felix, [facility] [address], [place], [address]. tel:[phone] ing Provider: Vibha Aguilar, [address], [address]. tel:[phone] [facility], [address], [place], [address], [place] tel:[phone] [place] [facility] Paroxysmal atrial fibrillation Oct-0 9201 8 Sophie Lorenz. [facility], [address], [place], [place], [address], [place]. tel:[phone] Referring Provider: Kelechi Felix, [facility] [address], [place], [address]. tel:[phone] ing Provider: Vibha Aguilar, [address], [address]. tel:[phone] [facility], [address], [place], [address], [place] tel:[phone] [place] [facility] Paroxysmal atrial fibrillation Oct-0 2201 8 Sophie Lorenz. [facility], [address], [place], [place], [address], [place]. tel:[phone] Referring Provider: Kelechi Felix, [facility] [address], [place], [address]. tel:[phone] ing Provider: Vibha Aguilar, [address], [address]. tel:[phone] Office Visit Level 3 [facility], [address], [place], [address], [place] tel:[phone] [facility] Cardiovascul ar Review (chief complaint)AF ib (chief complaint) Typical atrial flutterLong- term (current) use of anticoagulan ts, INR goal 2.0-3.0Hx of amiodarone therapyMorbi d obesity with BMI of 40.0-44.9, adultBody mass index (BMI) 40.0-44.9, adult Sep-2 8 Allie Rordíguez. [facility], [address], [place], [place], [address], [place]. tel:[phone] Referring Provider: Anne PLATT, [facility] [address], [place], [address]. tel:[phone] [facility], [address], [place], [address], [place] tel:[phone] [place] [facility] Paroxysmal atrial fibrillation May- 8 Sophie Lorenz. [facility], [address], [place], [place], [address], [place]. tel:[phone] Referring Provider: Kelechi Felix, [facility] [address], [place], [address]. tel:[phone] [facility], [address], [place], [address], [place] tel:[phone] [place] [facility] Paroxysmal atrial fibrillation 8 Sophie Lorenz. [facility], [address], [place], [place], [address], [place]. tel:[phone] [facility], [address], [place], [address], [place] tel:[phone] Ce[facility] CV No Information 8 Sophie Lorenz. [facility], [address], [place], [place], [address], [place]. tel:[phone] [facility], [address], [place], [address], [place] tel:[phone] [place] [facility] No Information 8 Sophie Lorenz. [facility], [address], [place], [place], [address], [place]. tel:[phone] Office Visit Level 4 [facility], [address], [place], [address], [place] tel:[phone] [place] [facility] general (chief complaint)AF ib (chief complaint)AF ib (chief complaint) Episodic atrial flutterAntic oagulant long-term useHyperthyr oidism 7 Sophie Lorenz. [facility], [address], [place], [place], [address], [place]. tel:[phone] Specialist: Kelechi Barrios MD, [facility] [address], [place], [address]. tel:[phone] ng Provider: Kelechi Barrios MD W, [facility] [address], [place], [address]. tel:[phone] [facility], [address], [place], [address], [place] tel:[phone] [facility] Paroxysmal atrial fibrillation 7 Sophie Lorenz. [facility], [address], [place], [place], [address], [place]. tel:[phone] [facility], [address], [place], [address], [place] tel:[phone] [place] [facility] No Information 7 Sophie Lorenz. [facility], [address], [place], [place], [address], [place]. tel:[phone] Referring Provider: Kelechi Felix, [facility] [address], [place], [address]. tel:[phone] [facility], [address], [place], [address], [place] tel:[phone] [place] [facility] No Information Sophie Lorenz. [facility], [address], [place], [address], [place]. tel:[phone] Referring Provider: Kelechi Felix, [facility] [address], [place], [address]. tel:[phone] Office Visit Level 4 [facility], [address], [place], [address], [place] tel:[phone] [place] [facility] AFib (chief complaint)ge neral (chief complaint) Chronic atrial fibrillation On amiodarone therapyAntic oagulant long-term useEpisodic atrial flutter Sophie Lorenz. [facility], [address], [place], [place], [address], [place]. tel:[phone] Referring Provider: Kelechi Felix, [facility] [address], [place], [address]. tel:[phone] [facility], [address], [place], [address], [place] tel:[phone] [place] [facility] No Information Randall Eubanks. [facility], [address], [place], [place], [address], [place]. tel:[phone] Referring Provider: Raimundo Hebert, [facility] [address], [place], [address]. tel:[phone] New Pt Office Visit Level 3 [facility], [address], [place], [address], [place] tel:[phone] [place] [facility] Abnormal result of cardiovascul ar function studyDyspnea on exertionCard iomyopathy, unspecified type 7 Randall Eubanks. [facility], [address], [place], [place], [address], [place]. tel:[phone] Referring Provider: Kelechi Felix, [facility] [address], [place], [address]. tel:[phone] [facility], [address], [place], [address], [place] tel:[phone] [place] [facility] Paroxysmal atrial fibrillation 7 Katelyn Bass. [facility] , [address], [place], [place], [address], [place]. tel:[phone] [facility], [address], [place], [address], [place] tel:[phone] DX [place] [facility] No Information 7 No Information Referring Provider: Kelechi Felix, [facility] [address], [place], [address]. tel:[phone] Office Visit Level 4 [facility], [address], [place], [address], [place] tel:[phone] [place] [facility] AFib (chief complaint) On amiodarone therapyAntic oagulant long-term useHyperthyr oidismAtrial flutter, paroxysmalCh est discomfort Allie Rodríguez. [facility], [address], [place], [address], [place]. tel:[phone] Specialist: Kelechi Barrios MD, [facility] [address], [place], [address]. tel:[phone] ng Provider: Anne PLATT, [facility] [address], [place], [address]. tel:[phone] Discharge From Observation [facility], [address], [place], [address], [place] tel:[phone] [place] [facility] No Information 7 Sophie Lorenz. [facility], [address], [place], [place], [address], [place]. tel:[phone] Referring Provider: Kelechi Feilx, [facility] [address], [place], [address]. tel:[phone] [facility], [address], [place], [address], [place] tel:[phone] [place] [facility] No Information 7 Yolie Palacios. [facility], [address], [place], [place], [address], [place]. tel:[phone] Referring Provider: Kelechi Felix, [facility] [address], [place], [address]. tel:[phone] Observation Admit Level 2 [facility], [address], [place], [address], [place] tel:[phone] [place] [facility] No Information 7 Sophie Lorenz. [facility], [address], [place], [place], [address], . tel:[phone] Referring Provider: Kelechi Felix, [facility] [address], [place], [address]. tel:[phone] Family History Family Member Type Diagnosis Age At Onset Mother Problem (finding) congestive heart failur e Father Problem (finding) No Family hist ory of No history of Cardiovascular disease Payers Payer name Insurance type Covered republican ID Authoriza tion(s) AARP Medicare Complete [facility] [id number] Social History Type Description Quantity Date Captured Comments Alcohol Use Details No Caffeine Use Details Unknown Tobacco Use Status No Information Smoking Status No Information Sex Female Chief Complaint And Reason For Visit No Information Reason For Referral Reason For Referral No Information Plan Of Treatment Date Type Action Status Future Order: Radiology Order Nu clear PET Regadenoson (PT), Appointment on: , Collected on: , Sent on: Sent History Of Present Illness Encounter Date Complaint History Of Prese nt Illness Cardiovascular Review She has bowling d no chest discomfort suggestive of ischemia. The patient denies orthopnea, PND, WHITAKER, or edema. Ms. Olivas has not had palpitations, syncope or near syncope. AFib The patient is b eing evaluated for atrial fibrillation. The patient's arrhythmia is asymptomatic. According to CHADS2 recommendations, antiplatelet or anticoagulant therapy is indicated. The patient is currently on warfarin 2 mg tablet. Other patient data: hyperthyroidism. Her last known ejection fraction: MPI (EF 0.68) - 11/04/2016. The patient has undergone flutter isthmus ablation (02/2017). She is currently in sinus rhythm. General The patient liam es orthopnea, PND, WHITAKER, or edema. Ms. Olivas has not had palpitations, syncope or near syncope. AFib AFib The patient has persistent atrial flutter (). Her symptoms with the arrhythmia have included palpitations. According to CHADS2 recommendations, antiplatelet therapy is indicated. The patient is currently on warfarin 2 mg tablet. Other patient data: hyperthyroidism. Her last known ejection fraction: MPI (EF 0.68) - 11/04/2016. The current primary treatment strategy for her arrhythmia is RHYTHM CONTROL. The patient has undergone flutter isthmus ablation (02/17/2017). She is currently in sinus rhythm. general The patient has been having palpitations. AFib The patient has had recurrent episodes of persistent atrial flutter (typical). Her symptoms with the arrhythmia have included palpitations. According to CHADS2 recommendations, antiplatelet therapy is indicated. The patient is currently on warfarin 2 mg tablet. Other patient data: hyperthyroidism. Her last known ejection fraction: MPI (EF 0.68) - 11/04/2016. The current primary treatment strategy for her arrhythmia is RHYTHM CONTROL. For rhythm control, she is on the following: amiodarone 200 mg tablet. She is currently in sinus rhythm. AFib The patient has paroxysmal atrial fibrillation. According to CHADS2 recommendations, antiplatelet therapy is indicated. The patient is currently on aspirin 81 mg tablet,delayed releas. Other patient data: hyperthyroidism. She is currently in sinus rhythm. Functional Status Date Functional Assessmen t No Information Instructions Date Instruction Additional Infor [place] Healthy Choice Educational Mater ials PCP Wellness Visit Healthy Food Choices Educational Materials Healthy Food Choices Educational Materials Healthy Choice Educational Mater ials Healthy Food Choices Educational Materials Assessments Type Assessment Date No Information Patient Care Teams Name Effective Dates (start - stop) Status Members No Information
--- OUTSIDE RECORDS SUMMARY | 2025-01-30 08:40 | XMS_ITS | Continuity of Care Document ---
Author Organization [facility] Address [address] [place] [address] Phone Care Team Providers Care Development Vice President Name Role Phone Bal Moore MD Unavailable Unavailable Allergies, Adverse Reactions, Alerts Substance Reaction Status Criticality Sulfa (Sulfonamide Antibiotics) Active No Information cefdinir Active No Information Medications Medication Instructions Dosage Effective Dates (start - stop) Status Comments prednisolone acetate 1 % eye drops,suspension instill 1 drop by 4 times every day into affected eye for 7 days - Active Procedures Procedure Date YAG CAP EYE EXAM MEDICAL OFFICE/OUTPATIENT VISIT, EST OFFICE/OUTPATIENT VISIT, EST OFFICE/OUTPATIENT VISIT, EST POSTOP FOLLOW-UP VISIT POSTOP FOLLOW-UP VISIT CATARACT SURG W/IOL, 1 STAGE IOL MASTER PC OPHTHALMIC BIOMETRY POSTOP FOLLOW-UP VISIT POSTOP FOLLOW-UP VISIT CATARACT SURG W/IOL, 1 STAGE IOL MASTER PC OPHTHALMIC BIOMETRY OFFICE/OUTPATIENT VISIT, EST TOPOGRAPHY NO CHARGE EYE EXAM, NEW PATIENT IOL MASTER TC OPHTHALMIC BIOMETRY Advance Directives Directive Yes / No Effective Date File Name No Information Encounters Encounter Description Practice Location Reason(s) For Visit Diagnoses Date Provider Providers Copied on Encounter [facility], [address], [place], [address], [place] tel:[phone] [facility] YAG CAP (chief complaint) No Information 0 3 5 Oscar Selby. [address], [place], [place], [id number] , [place]. tel: [phone] Referring Provider: Bal Alegria, [address], [place], [address] . tel:[phone] [facility], [address], [place], [address], [place] tel: [phone] [facility] 1 year medical f/u exam (chief complaint) Blurry vision (chief complaint) PseudophakiaOpacified capsulePosterior vitreous detachment 2 5 Oscar Selby. [address], [place], [place], [id number] , [place]. tel: [phone] Referring Provider: Bal Alegria, [address], [place], [address] . tel:[phone] [facility], [address], [place], [address], [place] tel: [phone] [facility] No Information 0 4 Oscar Selby. [address], [place], [place], [id number] , [place]. tel: [phone] OFFICE/OUTPA TIENT VISIT, EST [facility], [address], [place], [address], [place] tel: [phone] [facility] No Information 4 Oscar Selby. [address], [place], [place], [id number] , [place]. tel: [phone] Referring Provider: Bal Alegria, [address], [place], [address] . tel:[phone] OFFICE/OUTPA TIENT VISIT, EST [facility], [address], [place], [address], [place] tel: [phone] [facility] No Information Jun-2 3 Oscar Selby. [address], [place], [place], [id number] , [place]. tel: [phone] Referring Provider: Bal Alegria, [address], [place], [address] . tel:[phone] OFFICE/OUTPA TIENT VISIT, EST [facility], [address], [place], [address], [place] tel: [phone] [facility] No Information Apr-1 2-201 3 Oscar Selby. [address], [place], [place], [id number] , [place]. tel: [phone] Referring Provider: Bal Alegria, [address], [place], [address] . tel:[phone] [facility], [address], [place], [address], [place] tel: [phone] [facility] No Information Oct-2 5-201 2 Oscar Selby. [address], [place], [place], [id number] , [place]. tel: [phone] Referring Provider: Bal Alegria, [address], [place], [address] . tel:[phone] [facility], [address], [place], [address], [place] tel: [phone] [facility] No Information Oct-1 0-201 2 Oscar Selby. [address], [place], [place], [id number] , [place]. tel: [phone] Referring Provider: Bal Alegria, [address], [place], [address] . tel:[phone] [facility], [address], [place], [address], [place] tel: [phone] [facility] [place] No Information Oct-0 9-201 2 Oscar Selby. [address], [place], [place], [id number] , [place]. tel: [phone] Referring Provider: Bal Alegria, [address], [place], [address] . tel:[phone] [facility], [address], [place], [address], [place] tel: [phone] [facility] No Information Oct-0 4-201 2 Oscar Selby. [address], [place], [place], [id number] , [place]. tel: [phone] Referring Provider: Bal Alegria, [address], [place], [address] . tel:[phone] [facility], [address], [place], [address], [place] tel: [phone] [facility] No Information Oct-0 3-201 2 Oscar Selby. [address], [place], [place], [id number] , [place]. tel: [phone] Referring Provider: Bal Alegria, [address], [place], [address] . tel:[phone] [facility], [address], [place], [address], [place] tel: [phone] [facility] No Information Sep-2 6-201 2 Oscar Selby. [address], [place], [place], [id number] , [place]. tel: [phone] Referring Provider: Bal Alegria, [address], [place], [address] . tel:[phone] [facility], [address], [place], [address], [place] tel: [phone] [facility] [place] No Information Sep-2 5-201 2 Oscar Selby. [address], [place], [place], [id number] , [place]. tel: [phone] Referring Provider: Bal Alegria, [address], [place], [address] . tel:[phone] [facility], [address], [place], [address], [place] tel: [phone] [facility] No Information 2 Oscar Selby. [address], [place], [place], [address] , [place]. tel: [phone] Referring Provider: Bal Alegria, [address], [place], [address] . tel:[phone] OFFICE/OUTPA TIENT VISIT, EST [facility], [address], [place], [address], [place] tel: [phone] [facility] No Information 2 Oscar Selby. [address], [place], [place], [id number] , [place]. tel: [phone] Referring Provider: Bal Alegria, [address], [place], [address] . tel:[phone] [facility], [address], [place], [address], [place] tel: [phone] [facility] No Information 2 Oscar Selby. [address], [place], [place], [id number] , [place]. tel: [phone] Referring Provider: Bal Alegria, [address], [place], [address] . tel:[phone] Family History Family Member Type Diagnosis Age At Onset Mother Problem (finding) degenerative disorder o f macula Mother Problem (finding) Maternal history of eldon betes mellitus Payers Payer name Insurance type Covered republican ID Authoriza tion(s) Medicare MB [id number] [facility] [id number] Social History Type Description Quantity Date Captured Comments Alcohol Use Details Unknown Caffeine Use Details Unknown Tobacco Use Status Smoking Status No Information Sex Female Chief Complaint And Reason For Visit From encounter dated '04/16/2015 11:40'. YAG CAP (chief complaint). Description: This 69 year old female presents today for YAG CAP in the left eye. Reason For Referral Reason For Referral No Information History Of Present Illness Encounter Date Complaint History Of Prese nt Illness YAG CAP This 69 year old female presents today for YAG CAP in the left eye. 1 year medical f/u exam This 69 year old female presents today for a 1 year medical follow-up exam pt request cont Care for PC IOL OU Yag cap OU OS> OD , PVD OU Pt has decrease Va OS > OD dist & near like a film over OS grad mod x yr. OU itch of & on not using any drops Blurry vision The patient also complains of Blurry vision in the OS more than OD. The onset was gradual. It affects distance and near vision. The condition is moderate. Functional Status Date Functional Assessmen t No Information Instructions Date Instruction Additional Infor austin OBSERVE Discussed op tions and the elective nature of laser treatment. Emphasized decision for treatment is patient's own choice and NOT something they must do. Described procedure. Discussed procedure associated risks ranging from those which are resolvable with additional treatments or surgery, to those which have serious and permanent consequences such as decreased vision, blindness or even loss of eye. Discussed post-laser symptoms to be concerned about including flashes and floaters, redness, pain or decreasing vision. Patient seems to understand these discussions and feels that their symptoms are severe enough that they wish to proceed with a YAG capsulotomy. Related to Opacified capsule Patient education given Assessments Type Assessment Date No Information Patient Care Teams Name Effective Dates (start - stop) Status Members No Information
--- OUTSIDE RECORDS SUMMARY | 2025-01-30 08:40 | XMS_ITS | Clinical Summary ---
Author Organization [facility] Address [address] [place] [address] Care Team Providers Care Manager Asset Name Role Phone Joan Hogan MD Primary Care Provider [phone] Caroline Granados MD Unavailable [phone] Allergies Active Allergy Reactions Criticality Noted Date Comments Cefprozil Swelling Medium 10/11/2018 Other reaction(s): anaphylaxis. swelling. tolerates penicillin. Pregabalin Hallucinations Medium 03/10/2022 Medications lisinopril (PRINIVIL,ZESTRI L) 20 mg tablet Take 1 tablet (20 mg total) by mouth daily 2 08/23/[address] (CYMBALTA) 60 mg capsule 01/06/2022 Active Active Problems Problem Noted Date Diagnosed Date Morbid obesity with BMI of 40.0-44.9, adult 040 12/2022 Assessment & Plan (12/16/2022 9:08 AM CDT): Counseled on diet and exercise Essential hypertension 07/18/2019 Assessment & Plan (08/27/2020 10:37 AM MANAGER MEDIA): Chronic, well controlled continue current medication Assessment & Plan (07/18/2019 3:58 PM MANAGER MEDIA): Chronic, well controlled continue current medication Impacted [...] it Assessment & Plan (09/23/2021 10:16 AM MANAGER MEDIA): reviewed recent TFT , TFT WNL, TSI - elevated Continue methimazole therapy Recheck labs in 3 months F/w in 6 months Assessment & Plan (08/27/2020 10:37 AM MANAGER MEDIA): reviewed recent TFT , TFT WNL, TSI - elevated Continue methimazole therapy Recheck labs in 3 months F/w in 6 months Assessment & Plan (12/19/2019 9:45 AM CDT): Continue to take Methimazole 2.5 mg oral daily Recheck labs in 3 months Assessment & Plan (07/18/2019 3:57 PM MANAGER MEDIA): Probably secondary to Graves disease Reviewed recent [...] immediately Assessment & Plan (10/31/2018 10:55 PM MANAGER MEDIA): Probably secondary to Graves disease Reviewed recent [...] 11/28/2014 Assessment & Plan (09/23/2021 10:16 AM MANAGER MEDIA): Chronic, unchanged Discussed about healthy lifestyle habits [...] weekly Assessment & Plan (08/27/2020 10:37 AM MANAGER MEDIA): Chronic, worsening Discussed about healthy lifestyle habits [...] weekly Assessment & Plan (07/18/2019 3:57 PM MANAGER MEDIA): Chronic, unchanged Discussed about healthy lifestyle habits [...] discussed. Assessment & Plan (10/31/2018 10:56 PM MANAGER MEDIA): Obesity is worsening. Discussed the patient's BMI. [...] on it Advised to take at least sccr-ymq-ihtsmyi vitamin-D3 1000 units oral daily Assessment & Plan (09/23/2021 10:17 AM MANAGER MEDIA): Pt non complaint with replacement therapy Recheck labs today and further plans based on it Assessment & Plan (08/27/2020 10:37 AM MANAGER MEDIA): Improving C/w replacement dose Assessment & Plan [...] on file Legal Sex Female 9:41 AM MANAGER MEDIA Gender Identity Not on file Sexual Orientation [...] 2025 Breast Cancer Screening-Mammogram Discontinued [address] [facility] [place] [address] MEDICARE ADVANTAGE [address] MEDICARE ADVANTAGE Member Subscriber Plan / Payer (Ef fective 2022-Present) Name:JosedunglissyCornelia Relation to Subscriber:Self Name:JosedunglissyCornelia Payer ID:[id number] (NAIC) Type:[facility] MEDIC[facility] Address: [place] [id number] [address] [place] [id number] Care Teams Manager Asset Relationship Specialty Start Date End Date Joan Hogan MD [facility] [place] [address] PCP - General Internal Medicine 09/17/18 [place] [id number] [address] Consulting Physician Endocrinology 10/11/18
--- OUTSIDE RECORDS SUMMARY | 2025-01-30 08:40 | XMS_ITS | Referral Summary ---
Author Organization [facility] Address [address] [place] [address] Care Team Providers Care Restorative Care Technician Name Role Phone Joan Hogan MD Primary Care Provider [phone] Caroline Granados MD Unavailable [phone] Allergies Active Allergy Reactions Criticality Noted Date [...] 07/18/2019 Assessment & Plan (08/27/2020 10:37 AM RODEO PERFORMER): Chronic, well controlled continue current medication Assessment & Plan (07/18/2019 3:58 PM RODEO PERFORMER): Chronic, well controlled continue current medication Impacted [...] it Assessment & Plan (09/23/2021 10:16 AM RODEO PERFORMER): reviewed recent TFT , TFT WNL, TSI - elevated Continue methimazole therapy Recheck labs in 3 months F/w in 6 months Assessment & Plan (08/27/2020 10:37 AM RODEO PERFORMER): reviewed recent TFT , TFT WNL, TSI - elevated Continue methimazole therapy Recheck labs in 3 months F/w in 6 months Assessment & Plan (12/19/2019 9:45 AM CDT): Continue to take Methimazole 2.5 mg oral daily Recheck labs in 3 months Assessment & Plan (07/18/2019 3:57 PM RODEO PERFORMER): Probably secondary to Graves disease Reviewed recent [...] immediately Assessment & Plan (10/31/2018 10:55 PM RODEO PERFORMER): Probably secondary to Graves disease Reviewed recent [...] 11/28/2014 Assessment & Plan (09/23/2021 10:16 AM RODEO PERFORMER): Chronic, unchanged Discussed about healthy lifestyle habits [...] weekly Assessment & Plan (08/27/2020 10:37 AM RODEO PERFORMER): Chronic, worsening Discussed about healthy lifestyle habits [...] weekly Assessment & Plan (07/18/2019 3:57 PM RODEO PERFORMER): Chronic, unchanged Discussed about healthy lifestyle habits [...] discussed. Assessment & Plan (10/31/2018 10:56 PM RODEO PERFORMER): Obesity is worsening. Discussed the patient's BMI. [...] on it Advised to take at least hajq-qne-rrbdmyl vitamin-D3 1000 units oral daily Assessment & Plan (09/23/2021 10:17 AM RODEO PERFORMER): Pt non complaint with replacement therapy Recheck labs today and further plans based on it Assessment & Plan (08/27/2020 10:37 AM RODEO PERFORMER): Improving C/w replacement dose Assessment & Plan [...] on file Legal Sex Female 9:41 AM RODEO PERFORMER Gender Identity Not on file Sexual Orientation [...] Plan of Treatment Not on file Insurance [address] MEDICARE ADVANTAGE UHC MEDICARE ADVANTAGE [address] MEDICARE ADVANTAGE Care Teams Restorative Care Technician Relationship Specialty Start Date End Date Joan Hogan MD [address] [facility] [place] [address] PCP - General Internal Medicine 09/17/18 [place] [id number] [facility] [address] [place] [address] Consulting Physician Endocrinology 10/11/18
[2025-01-30 20:11] LABS: Basophils Absolute Auto 0.1 K/mm3 (0.0-0.1); Basophils Percent Auto 1.3 % (0.2-1.2); Eosinophils Absolute Auto 0.2 K/mm3 (0-0.3); Eosinophils Percent Auto 3.8 % (0-4.4); Hematocrit 45.9 % (37.0-47.0); Hemoglobin 14.6 g/dL (12.0-15.0); Immature Granulocyte Absolute 0.01 K/mm3 (0.00-0.031); Immature Granulocyte Percent A 0.2 % (0-0.5); Lymphocytes Absolute Auto 1.43 K/mm3 (0.9-3.2); Lymphocytes Percent Auto 25.6 % (18.3-44.2); Mean Corpuscular HGB Conc 31.8 g/dl (32-36); Mean Corpuscular Hemoglobin 29.7 pg (26-34); Mean Corpuscular Volume 93.3 fl (80-100); Mean Platelet Volume 11.4 fl (7.4-10.4); Monocytes Absolute Auto 0.4 K/mm3 (0.1-0.6); Monocytes Percent Auto 7.5 % (2.6-8.5); Neutrophils Absolute Auto 3.4 K/mm3 (1.3-6.7); Neutrophils Percent Auto 61.6 % (45.5-73.1); Platelet Count Result 273 k/mm3 (150-375); Red Blood Count 4.92 M/mm3 (4.2-5.4); Red Cell Distribution Width 13.4 % (11.5-14.5); White Blood Count 5.6 K/mm3 (4.5-10.0)
[2025-01-30 20:37] LABS: Free T4 Free Thyroxine 1.19 ng/dL (0.78-2.19); Vitamin D 25 Hydroxy 21.1 ng/mL
[2025-01-30 21:02] LABS: Alanine Aminotransferase 22 U/L (6-35); Albumin Level 4.2 g/dL (3.5-5.1); Alkaline Phosphatase 61 U/L (38-126); Anion Gap 10 mmol/L (4-12); Aspartate Amino Transferase 55 U/L (14-36); Bilirubin,Total 0.6 mg/dL (0.2-1.3); Blood Urea Nitrogen 27 mg/dL (7-17); Calcium 9.3 mg/dL (8.4-10.2); Carbon Dioxide 24 mmol/L (22-30); Chloride 108 mmol/L (98-107); Cholesterol 248 mg/dL (0-200); Estimated Glomerular Filt Rate 39; Glucose 73 mg/dL (65-110); HDL Direct 54 mg/dL; Potassium 4.4 mmol/L (3.4-5.0); Sodium 142 mmol/L (137-145); Triglycerides 100 mg/dL (<150)
[2025-01-30 21:13] LABS: LDL Cholesterol Direct 134 mg/dL
[2025-01-30 22:12] LABS: Hemoglobin A1C 5.5 % (<5.7)
== END 2025-01-30 08:36 | disposition home or self-care (01) ==
PROVIDERS: PCP Family Medicine; Visit Provider Nurse Practitioner Family
DX: R73.03 Prediabetes (principal); E05.00 Thyrotoxicosis with diffuse goiter without thyrotoxic crisis or storm; E55.9 Vitamin D deficiency, unspecified; I10 Essential (primary) hypertension; E78.5 Hyperlipidemia, unspecified
CPT/HCPCS: 36415; 80053; 80061; 82306; 83036; 84439; 84443; 85025

== ENCOUNTER 2025-02-23 07:08 | Outpatient (CLI) | payer MEDICARE, SELFPAY ==
--- NOTE | ~2025-02-23 | MM_ITS ---
MM post biopsy invasive RT, MM stereotactic specimen RT, MM stereotactic bx RT EXAMINATION: MM post biopsy invasive RT, MM stereotactic specimen RT, MM stereotactic bx RT INDICATION: Abnormal calcifications in the right breast. Stereotactic core biopsy is requested evalu ate for malignancy.] BREAST PARENCHYMAL COMPOSITION: Comparison to multiple prior studies sequentially, with oldest review ed study dated 10/21/2019. TECHNIQUE AND FINDINGS: The risks and potential benefits of the procedure were discussed with the patient and written informe d consent was obtained. The patient was placed in the prone position clustered at the table with the right breast in craniocaudal/caudocranial/mediolateral/lateromedial compression, and the area of int erest was localized and targeted utilizing digital imaging with stereotaxis. After sterile preparation of the skin, 1% lidocaine was utilized for local anesthesia at the skin pun cture site and 1% lidocaine with epinephrine was utilized for deeper local anesthesia/is about the bi opsy site. A 9G Eviva vacuum assisted biopsy needle was advanced to the level of the calcification o f interest from a medial approach utilizing stereotactic guidance and a total of 6 tissue core biopsi es were obtained. A specimen radiograph demonstrates that the calcifications of interest are included within the tissue cores. A tissue marker clip was then placed at the biopsy site. The needle was removed and hemosta sis was achieved. The patient tolerated the procedure well and there is no evidence of significant i mmediate complication. The patient was given verbal as well as written postprocedural instructions p rior to discharge from the department. Tissue cores were submitted to surgical pathology for histolo gic analysis. A 2-view right unilateral digital mammogram was obtained post procedure and this demonstrates that th e tissue marker clip is in expected position.] IMPRESSION: 1. Successful stereotactic biopsy of calcifications in the lower inner quadrant of the right breast with post procedure mammogram for marker placement. Please refer to pathology report for histologic analysis. Reviewed, dictated and finalized at location [] IMPRESSION: 1. Successful stereotactic biopsy of calcifications in the lower inner quadran t of the right breast with post procedure mammogram for marker placement. Plea se refer to pathology report for histologic analysis. IMPRESSION: 1. Successful stereotactic biopsy of calcifications in the lower inner quadran t of the right breast with post procedure mammogram for marker placement. Plea se refer to pathology report for histologic analysis.
--- OUTSIDE RECORDS SUMMARY | 2025-02-23 07:12 | XMS_ITS | Referral Summary ---
Author Organization [facility] Address [address] [place] [address] Care Team Providers Care Fur Liner Name Role Phone Joan Hogan MD Primary Care Provider [phone]- [phone] Caroline Granados MD Unavailable [phone] Allergies Active Allergy Reactions Criticality Noted Date Comments Cefprozil Swelling Medium 10/11/2018 Other reaction(s): anaphylaxis. swelling. tolerates penicillin. Pregabalin Hallucinations Medium 03/10/2022 Medications lisinopril (PRINIVIL,ZESTRI L) 20 mg tablet Take 1 tablet (20 mg total) by mouth daily 2 08/23/[address] (CYMBALTA) 60 mg capsule 01/06/2022 Active Active Problems Problem Noted Date Diagnosed Date Morbid obesity with BMI of 40.0-44.9, adult 0412/2022 Assessment & Plan (12/16/2022 9:08 AM CDT): Counseled on diet and exercise Essential hypertension 07/18/2019 Assessment & Plan (08/27/2020 10:37 AM CONTROL SYSTEMS ENG): Chronic, well controlled continue current medication Assessment & Plan (07/18/2019 3:58 PM CONTROL SYSTEMS ENG): Chronic, well controlled continue current medication Impacted [...] it Assessment & Plan (09/23/2021 10:16 AM CONTROL SYSTEMS ENG): reviewed recent TFT , TFT WNL, TSI - elevated Continue methimazole therapy Recheck labs in 3 months F/w in 6 months Assessment & Plan (08/27/2020 10:37 AM CONTROL SYSTEMS ENG): reviewed recent TFT , TFT WNL, TSI - elevated Continue methimazole therapy Recheck labs in 3 months F/w in 6 months Assessment & Plan (12/19/2019 9:45 AM CDT): Continue to take Methimazole 2.5 mg oral daily Recheck labs in 3 months Assessment & Plan (07/18/2019 3:57 PM CONTROL SYSTEMS ENG): Probably secondary to Graves disease Reviewed recent [...] immediately Assessment & Plan (10/31/2018 10:55 PM CONTROL SYSTEMS ENG): Probably secondary to Graves disease Reviewed recent [...] 11/28/2014 Assessment & Plan (09/23/2021 10:16 AM CONTROL SYSTEMS ENG): Chronic, unchanged Discussed about healthy lifestyle habits [...] weekly Assessment & Plan (08/27/2020 10:37 AM CONTROL SYSTEMS ENG): Chronic, worsening Discussed about healthy lifestyle habits [...] weekly Assessment & Plan (07/18/2019 3:57 PM CONTROL SYSTEMS ENG): Chronic, unchanged Discussed about healthy lifestyle habits [...] discussed. Assessment & Plan (10/31/2018 10:56 PM CONTROL SYSTEMS ENG): Obesity is worsening. Discussed the patient's BMI. [...] on it Advised to take at least kdpz-mso-gksbjyp vitamin-D3 1000 units oral daily Assessment & Plan (09/23/2021 10:17 AM CONTROL SYSTEMS ENG): Pt non complaint with replacement therapy Recheck labs today and further plans based on it Assessment & Plan (08/27/2020 10:37 AM CONTROL SYSTEMS ENG): Improving C/w replacement dose Assessment & Plan [...] on file Legal Sex Female 9:41 AM CONTROL SYSTEMS ENG Gender Identity Not on file Sexual Orientation [...] 8:28 AM CDT Height 157.5 cm (5' 2) 12/16/2022 8:28 AM CDT Body Mass Index 44.59 12/16/2022 8:28 AM CDT Plan of Treatment Not on file Insurance [address] MEDICARE ADVANTAGE [facility] Address: [place] [id number] [place] [id number] UHC MEDICARE ADVANTAGE [facility] Address: [place] [phone] MEDICARE ADVANTAGE Care Teams Fur Liner Relationship Specialty Start Date End Date Joan Hogan MD PCP - General Internal Medicine 09/17/18 [place] [address] [facility] [address] [address] Consulting Physician Endocrinology 10/11/18
--- OUTSIDE RECORDS SUMMARY | 2025-02-23 07:12 | XMS_ITS | Continuity of Care Document ---
Author Organization [facility] Address [address] [place] [address] Phone Care Team Providers Care Flask Fitter Name Role Phone BarriosKelechi shah MD, MD [...] Providers Copied on Encounter Cardiovascu lar [facility], [address] [facility] [address], [place], [address], tel:[phone] [place] [facility] Paroxysmal atrial fibrillation 9 Sophie Lorenz. [facility], [address], [place], [place], [address], [place]. tel:[phone] Referring Provider: Kelechi Felix, [facility] [address], [place], [address]. tel:[phone] [facility], [address], [place], [address], [place] tel:[phone] Ceja CVM Paroxysmal atrial fibrillation Aug-2 8 Sophie Lorenz. [facility], [address], [place], [place], [address], [place]. tel:[phone] Referring Provider: Kelechi Felix, [facility] [address], [place], [address]. tel:[phone] [facility], [address], [place], [address], [place] tel:[phone] Ceja CVM Paroxysmal atrial fibrillation Jul-3 0 8 Sophie Lorenz. [facility], [address], [place], [address], [place]. tel:[phone] Referring Provider: Kelechi Felix, [facility] [address], [place], [address]. tel:[phone] [facility], [address] [facility] [address], [place], [address], [place] tel:[phone] Ceja CVM Paroxysmal atrial fibrillation 0 8 Sophie Lorenz. [facility], [address], [place], [place], [address], [place]. tel:[phone] Referring Provider: Kelechi Felix, [facility] [address], [place], [address]. tel:[phone] [facility], [address] [facility] [address], [place], [address], [place] tel:[phone] Ceja CVM Paroxysmal atrial fibrillation Oct- 6201 8 Sophie Lorenz. [facility], [address], [place], [place], [address], [place]. tel:[phone] Referring Provider: Kelechi Felix, [facility] [address], [place], [address]. tel:[phone] ing Provider: Vibha Aguilar, [address], [address]. tel:[phone] [facility], [address], [place], [address], [place] tel:[phone] Ceja CVM Paroxysmal atrial fibrillation Oct-0 9201 8 Sophie Lorenz. [facility], [address], [place], [place], [address], [place]. tel:[phone] Referring Provider: Kelechi Felix, [facility] [address], [place], [address]. tel:[phone] ing Provider: Vibha Aguilar, [address], [address]. tel:[phone] [facility], [address] [facility] [address], [place], [address], [place] tel:[phone] [place] CVM Paroxysmal atrial fibrillation Oct-0 2201 8 Sophie Lorenz. [facility], [address], [place], [place], [address], [place]. tel:[phone] Referring Provider: Kelechi Felix, [facility] [address], [place], [address]. tel:[phone] ing Provider: Vibha Aguilar, [address], [address]. tel:[phone] Office Visit Level 3 [facility], [address], [place], [address], [place] tel:[phone] [facility] Cardiovascul ar Review (chief complaint)AF ib (chief complaint) Typical atrial flutterLong- term (current) use of anticoagulan ts, INR goal 2.0-3.0Hx of amiodarone therapyMorbi d obesity with BMI of 40.0-44.9, adultBody mass index (BMI) 40.0-44.9, adult Sep-2 8 Allie Rodríguez. [facility], [address], [place], [place], [address], [place]. tel:[phone] Referring Provider: Anne PLATT, [facility] [address], [place], [address]. tel:[phone] [facility], [address] [facility] [address], [place], [address], [place] tel:[phone] [place] CV Paroxysmal atrial fibrillation May- 8 Sophie Lorenz. [facility], [address], [place], [place], [address], [place]. tel:[phone] Referring Provider: Kelechi Felix, [facility] [address], [place], [address]. tel:[phone] [facility], [address] [facility] [address], [place], [address], [place] tel:[phone] [place] CV Paroxysmal atrial fibrillation 8 Sophie Lorenz. [facility], [address], [place], [address], [place]. tel:[phone] [facility], [address] [facility] [address], [place], [address], [place] tel:[phone] Ceja CV No Information 8 Sophie Lorenz. [facility], [address], [place], [place], [address], [place]. tel:[phone] [facility], [address] [facility] [address], [place], [address], [place] tel:[phone] [place] C[facility] No Information 8 Sophie Lorenz. [facility], [address], [place], [place], [address], [place]. tel:[phone] Office Visit Level 4 [facility], [address], [place], [address], [place] tel:[phone] Ceja CVM general (chief complaint)AF ib (chief complaint)AF ib (chief complaint) Episodic atrial flutterAntic oagulant long-term useHyperthyr oidism 7 Sophie Lorenz. [facility], [address], [place], [place], [address], [place]. tel:[phone] Specialist: Kelechi Barrois MD, [facility] [address], [place], [address]. tel:[phone] ng Provider: Kelechi Barrios MD W, [facility] [address], [place], [address]. tel:[phone] [facility], [address] [facility] [address], [place], [address], [place] tel:[phone] [facility] OP Paroxysmal atrial fibrillation 7 Sophie Lorenz. [facility], [address], [place], [place], [address], [place]. tel:[phone] [facility], [address] [facility] [address], [place], [address], [place] tel:[phone] Ceja CVM No Information 7 Sophie Lorenz. [facility], [address], [place], [place], [address], [place]. tel:[phone] Referring Provider: Kelechi Felix, [facility] [address], [place], [address]. tel:[phone] [facility], [address], [place], [address], [place] tel:[phone] [place] C[facility] No Information Sophie Lorenz. [facility], [address], [place], [place], [address], [place]. tel:[phone] Referring Provider: Kelechi Felix, [facility] [address], [place], [address]. tel:[phone] Office Visit Level 4 [facility], [address] [facility] [address], [place], [address], [place] tel:[phone] [place] CVM AFib (chief complaint)ge neral (chief complaint) Chronic atrial fibrillation On amiodarone therapyAntic oagulant long-term useEpisodic atrial flutter Sophie Lorenz. [facility], [address], [place], [place], [address], [place]. tel:[phone] Referring Provider: Kelechi Felix, [facility] [address], [place], [address]. tel:[phone] [facility], [address], [place], [address], [place] tel:[phone] [place] CVM No Information Randall Eubanks. [facility], [address], [place], [place], [address], [place]. tel:[phone] Referring Provider: Raimundo Hebert, [facility] [address], [place], [address]. tel:[phone] New Pt Office Visit Level 3 [facility], [address] [facility] [address], [place], [address], [place] tel:[phone] [place] CVM Abnormal result of cardiovascul ar function studyDyspnea on exertionCard iomyopathy, unspecified type 7 Randall Eubanks. [facility], [address], [place], [address], [place]. tel:[phone] Referring Provider: Kelehci Felix, [facility] [address], [place], [address]. tel:[phone] [facility], [address] [facility] [address], [place], [address], [place] tel:[phone] [place] [facility] Paroxysmal atrial fibrillation 7 Katelyn Bass. [facility] , [address], [place], [place], [address], [place]. tel:[phone] [facility], [address] [facility] [address], [place], [address], [place] tel:[phone] DX [place] C[facility] No Information 7 No Information Referring Provider: Kelechi Felix, [facility] [address], [place], [address]. tel:[phone] Office Visit Level 4 [facility], [address] [facility] [address], [place], [address], [place] tel:[phone] [place] CVM AFib (chief complaint) On amiodarone therapyAntic oagulant long-term useHyperthyr oidismAtrial flutter, paroxysmalCh est discomfort Allie Rodríguez. [facility], [address], [place], [address], [place]. tel:[phone] Specialist: Kelechi Barrios MD, [facility] [address], [place], [address]. tel:[phone] ng Provider: Anne PLATT, [facility] [address], [place], [address]. tel:[phone] Discharge From Observation [facility], [address] [facility] [address], [place], [address], [place] tel:[phone] [place] C[facility] No Information 7 Sophie Lorenz. [facility], [address], [place], [place], [address], [place]. tel:[phone] Referring Provider: Kelechi Felix, [facility] [address], [place], [address]. tel:[phone] [facility], [address] [facility] [address], [place], [address], [place] tel:[phone] [place] C[facility] No Information 7 Yolie Palacios. [facility], [address], [place], [place], [address], [place]. tel:[phone] Referring Provider: Kelechi Felix, [facility] [address], [place], [address]. tel:[phone] Observation Admit Level 2 [facility], [address], [place], [address], [place] tel:[phone] [place] C[facility] No Information 7 Sophie Lorenz. [facility], [address], [place], [place], [address], . tel:[phone] Referring Provider: Kelechi Felix, [facility] [address], [place], [address]. tel:[phone] Family History Family Member Type Diagnosis Age At Onset Mother Problem (finding) congestive heart failur e Father Problem (finding) No Family hist ory of No history of Cardiovascular disease Payers Payer name Insurance type Covered libertarian ID Authoriza tion(s) AARP Medicare Complete [facility] [id number] Social History Type Description Quantity Date Captured [...]
--- OUTSIDE RECORDS SUMMARY | 2025-02-23 07:12 | XMS_ITS | Continuity of Care Document ---
Author Organization [facility] Address [address] [place] [address] Phone Care Team Providers Care Fishing Tool Supervisor Name Role Phone Bal Moore MD Unavailable [...] Diagnoses Date Provider Providers Copied on Encounter [facility], [address], [place], [address], [place] tel:[phone] [facility] YAG CAP (chief complaint) No Information 0 3 5 Oscar Selby. [address], [place], [place], [address] , [place]. tel: [phone] Referring Provider: Bal Alegria, [address], [place], [address] . tel:[phone] [facility], [address], [place], [address], [place] tel: [phone] [facility] 1 year medical f/u exam (chief complaint) Blurry vision (chief complaint) PseudophakiaOpacified capsulePosterior vitreous detachment 2 5 Oscar Selby. [address], [place], [place], [address] , [place]. tel: [phone] Referring Provider: Bal Alegria, [address], [place], [address] . tel:[phone] [facility], [address], [place], [address], [place] tel: [phone] [facility] No Information 0 4 Oscar Selby. [address], [place], [place], [address] , [place]. tel: [phone] OFFICE/OUTPA TIENT VISIT, EST [facility], [address], [place], [address], [place] tel: [phone] [facility] No Information 4 Oscar Selby. [address], [place], [place], [address] , [place]. tel: [phone] Referring Provider: Bal Alegria, [address], [place], [address] . tel:[phone] OFFICE/OUTPA TIENT VISIT, EST [facility], [address], [place], [address], [place] tel: [phone] [facility] No Information Jun-2 3 Oscar Selby. [address], [place], [place], [address] , [place]. tel: [phone] Referring Provider: Bal Alegria, [address], [place], [address] . tel:[phone] OFFICE/OUTPA TIENT VISIT, EST [facility], [address], [place], [address], [place] tel: [phone] [facility] No Information Apr-1 2-201 3 Oscar Selby. [address], [place], [place], [address] , [place]. tel: [phone] Referring Provider: Bal Alegria, [address], [place], [address] . tel:[phone] [facility], [address], [place], [address], [place] tel: [phone] [facility] No Information Oct-2 5-201 2 Oscar Selby. [address], [place], [place], [address] , [place]. tel: [phone] Referring Provider: Bal Alegria, [address], [place], [address] . tel:[phone] [facility], [address], [place], [address], [place] tel: [phone] [facility] No Information Oct-1 0-201 2 Oscar Selby. [address], [place], [place], [address] , [place]. tel: [phone] Referring Provider: Bal Alegria, [address], [place], [address] . tel:[phone] [facility], [address], [place], [address], [place] tel: [phone] [facility] [place] No Information Oct-0 9-201 2 Oscar Selby. [address], [place], [place], [address] , [place]. tel: [phone] Referring Provider: Bal Alegria, [address], [place], [address] . tel:[phone] [facility], [address], [place], [address], [place] tel: [phone] [facility] No Information Oct-0 4-201 2 Oscar Selby. [address], [place], [place], [address] , [place]. tel: [phone] Referring Provider: Bal Alegria, [address], [place], [address] . tel:[phone] [facility], [address], [place], [address], [place] tel: [phone] [facility] No Information Oct-0 3-201 2 Oscar Selby. [address], [place], [place], [address] , [place]. tel: [phone] Referring Provider: Bal Alegria, [address], [place], [address] . tel:[phone] [facility], [address], [place], [address], [place] tel: [phone] [facility] No Information Sep-2 6-201 2 Oscar Selby. [address], [place], [place], [address] , [place]. tel: [phone] Referring Provider: Bal Alegria, [address], [place], [address] . tel:[phone] [facility], [address], [place], [address], [place] tel: [phone] [facility] [place] No Information Sep-2 5-201 2 Oscar Selby. [address], [place], [place], [address] , [place]. tel: [phone] Referring Provider: Bal Alegria, [address], [place], [address] . tel:[phone] [facility], [address], [place], [address], [place] tel: [phone] [facility] No Information 2 Oscar Selby. [address], [place], [place], [address] , [place]. tel: [phone] Referring Provider: Bal Alegria, [address], [place], [address] . tel:[phone] OFFICE/OUTPA TIENT VISIT, EST [facility], [address], [place], [address], [place] tel: [phone] [facility] No Information 2 Oscar Selby. [address], [place], [place], [address] , [place]. tel: [phone] Referring Provider: Bal Alegria, [address], [place], [address] . tel:[phone] [facility], [address], [place], [address], [place] tel: [phone] [facility] No Information 2 Oscar Selby. [address], [place], [place], [address] , [place]. tel: [phone] Referring Provider: Bal Alegria, [address], [place], [address] . tel:[phone] Family History Family Member Type Diagnosis Age At Onset Mother Problem (finding) degenerative disorder o f macula Mother Problem (finding) Maternal history of eldon betes mellitus Payers Payer name Insurance type Covered republican ID Authoriza tion(s) [place] [id number] [facility] [id number] Social History Type Description Quantity Date Captured [...]
--- OUTSIDE RECORDS SUMMARY | 2025-02-23 07:12 | XMS_ITS | Clinical Summary ---
Author Organization [facility] Address [address] [place] [address] Care Team Providers Care Plant Associate Name Role Phone Joan Hogan MD Primary Care Provider [phone] Caroline Granados MD Unavailable [phone] Allergies Active Allergy Reactions Criticality Noted Date [...] 07/18/2019 Assessment & Plan (08/27/2020 10:37 AM ARMAMENT REPAIRER): Chronic, well controlled continue current medication Assessment & Plan (07/18/2019 3:58 PM ARMAMENT REPAIRER): Chronic, well controlled continue current medication Impacted [...] it Assessment & Plan (09/23/2021 10:16 AM ARMAMENT REPAIRER): reviewed recent TFT , TFT WNL, TSI - elevated Continue methimazole therapy Recheck labs in 3 months F/w in 6 months Assessment & Plan (08/27/2020 10:37 AM ARMAMENT REPAIRER): reviewed recent TFT , TFT WNL, TSI - elevated Continue methimazole therapy Recheck labs in 3 months F/w in 6 months Assessment & Plan (12/19/2019 9:45 AM CDT): Continue to take Methimazole 2.5 mg oral daily Recheck labs in 3 months Assessment & Plan (07/18/2019 3:57 PM ARMAMENT REPAIRER): Probably secondary to Graves disease Reviewed recent [...] immediately Assessment & Plan (10/31/2018 10:55 PM ARMAMENT REPAIRER): Probably secondary to Graves disease Reviewed recent [...] 11/28/2014 Assessment & Plan (09/23/2021 10:16 AM ARMAMENT REPAIRER): Chronic, unchanged Discussed about healthy lifestyle habits [...] weekly Assessment & Plan (08/27/2020 10:37 AM ARMAMENT REPAIRER): Chronic, worsening Discussed about healthy lifestyle habits [...] weekly Assessment & Plan (07/18/2019 3:57 PM ARMAMENT REPAIRER): Chronic, unchanged Discussed about healthy lifestyle habits [...] discussed. Assessment & Plan (10/31/2018 10:56 PM ARMAMENT REPAIRER): Obesity is worsening. Discussed the patient's BMI. [...] on it Advised to take at least nfjy-xep-fkfqnon vitamin-D3 1000 units oral daily Assessment & Plan (09/23/2021 10:17 AM ARMAMENT REPAIRER): Pt non complaint with replacement therapy Recheck labs today and further plans based on it Assessment & Plan (08/27/2020 10:37 AM ARMAMENT REPAIRER): Improving C/w replacement dose Assessment & Plan [...] on file Legal Sex Female 9:41 AM ARMAMENT REPAIRER Gender Identity Not on file Sexual Orientation [...] 2025 Breast Cancer Screening-Mammogram Discontinued 013 Insurance [facility] MEDICARE [facility] MEDICARE Address: [facility] [address] [place] [address] MEDICARE ADVANTAGE [facility] MEDICARE Address: [address] [place], [place] [phone] MEDICARE [facility]AGE [facility] MEDICARE Address: [address] [id number] [address] [place] [address] Care Teams Plant Associate Relationship Specialty Start Date End Date Joan Hogan MD PCP - General Internal Medicine 09/17/18 [place] [address] [address] Consulting Physician Endocrinology 10/11/18
--- NOTE | 2025-02-23 08:32 | S_PTH ---
PATIENT: Cornelia Olivas LOC: [facility] U#:[id number] AGE/SX: 79/F ROOM: RE02/23/[address]: Alia Sosa MD : 1945 BED: DIS: 02/23/2025 SPEC #: [id number] RECD: 02/23/25 13:51 STATUS: MARKO REClarence #: [id number] LISA: 02/23/25 08:[address]: Alia Sosa DEPT: [facility] Surgical RECD BY: Cinthya Pabon ENTERED: 02/23/25 13:52 SP TYPE: Surgical OTHR DR: Aron Munguia MD Tissues: A - Breast Biopsy B - Breast Biopsy Procedures: Hematoxylin and Eosin Stain Gross and Microscopic Level 4
== END 2025-02-23 07:09 | disposition home or self-care (01) ==
PROVIDERS: PCP Family Medicine; Visit Provider Surgery
DX: R92.8 Other abnormal and inconclusive findings on diagnostic imaging of breast (principal); D24.1 Benign neoplasm of right breast
CPT/HCPCS: 19081; 88305